=== PATIENT | female | born 1995 | race Caucasian/White ===

== ENCOUNTER 2019-11-05 08:45 | Outpatient (CLI) | payer MEDICAID, SELFPAY ==
--- NOTE | 2019-11-05 | US_ITS ---
WS: [id number] OBSTETRICAL ULTRASOUND COMPLETE HISTORY: MULTIGRAVIDA IN SECOND TRIMESTER COMPARISON: None available. Single intrauterine gestation in Cephalic presentation. Cervix is Closed and normal length. Cervical length is 4.2 cm. Normal amount of amniotic fluid surrounds the fetus. Placenta: Posterior with no previa. Placenta ends 2.0 cm above the internal cervical os. Placenta gr nicholas 1 Heart: 151 BPM. Four chambers are identified. Anatomy: Intracranial structures and spine are normal. kidneys, stomach and urinary bladd er are unremarkable. Abdominal wall, three-vessel cord and cord insertion site are normal. 4 extremities are present. profile: Unremarkable. Gender: Female. measurements: BPD = 4.3 cm = 19w0d HC = 16.1 cm = 19w0d AC = 13.5 cm = 19w0d FL = 3.0 cm = 19w1d EFW: 272 g., Measurements are internally concordant. AGA by ultrasound: 19 weeks 0 days GILLES by ultrasound: 03/31/2020 US/US OB >= 14 weeks fetus [id number] IMPRESSION: 1. Single intrauterine gestation of 19 weeks 0 day with an EDC of 03/31/2020. 2. Unremarkable screening survey of anatomy.
== END 2019-11-05 08:46 | disposition home or self-care (01) ==
LOC: RADOUTREAD 11:27
PROVIDERS: Family Provider Family Medicine; PCP Family Medicine; Visit Provider Family Medicine
DX: Z34.82 Encounter for supervision of other normal pregnancy, second trimester (principal)

== ENCOUNTER 2020-03-09 19:03 | Outpatient (CLI) | payer MEDICAID, SELFPAY ==
[2020-03-09 19:11] VITALS: BP 140/80; PULSE 94
[2020-03-09 19:44] VITALS: TEMP 37; BMI 25.9
[2020-03-09 20:22] LABS: Nitrazine Paper, PH Negative
[2020-03-09 21:36] VITALS: TEMP 37
== END 2020-03-09 20:10 | disposition home or self-care (01) ==
LOC: OPOB 19:05 → OBGYN 20:03
PROVIDERS: PCP Family Medicine; Visit Provider Family Medicine
DX: O26.899 Other specified pregnancy related conditions, unspecified trimester (principal); Z3A.00 Weeks of gestation of pregnancy not specified; N89.8 Other specified noninflammatory disorders of vagina
CPT/HCPCS: 59025; 83986; 99211

== ENCOUNTER 2020-03-28 00:07 | Outpatient (CLI) | payer MEDICAID, SELFPAY ==
[2020-03-28] VITALS (7 sets, daily range): BP systolic 0–121; BP diastolic 0–79; PULSE 88–107; TEMP 36.8; BMI 26.7
== END 2020-03-28 03:22 | disposition home or self-care (01) ==
LOC: OPOB 00:08 → OBGYN 01:29
PROVIDERS: PCP Family Medicine; Visit Provider Family Medicine
DX: O26.899 Other specified pregnancy related conditions, unspecified trimester (principal); Z3A.00 Weeks of gestation of pregnancy not specified; R10.9 Unspecified abdominal pain
CPT/HCPCS: 59025; 83986; 99211

== ENCOUNTER 2020-04-02 19:45 | Inpatient (IN) | payer MEDICAID, SELFPAY ==
[2020-04-02] VITALS (19 sets, daily range): BP systolic 0–122; BP diastolic 0–78; PULSE 91–109; TEMP 36.8; O2SAT 96–98; BMI 27.1
[2020-04-02 21:02] LABS: Basophils % 0.2 %; Eosinophils # 0.1 10^3/uL (0.0-0.8); Hematocrit 33.4 % (37.0-47.0); Lymphocytes # 2.1 10^3/uL (0.8-4.8); Lymphocytes % 21.4 %; Mean Corpuscular HGB Conc 32.9 g/dL (30.0-36.0); Mean Corpuscular Hemoglobin 27.6 pg (28.0-34.0); Mean Corpuscular Volume 83.9 fL (81-99); Mean Platelet Volume 9.9 fL (7.4-10.4); Monocytes # 0.6 10^3/uL (0.2-0.9); Monocytes % 6.5 %; Neutrophils # 6.8 10^3/uL (1.8-7.7); Neutrophils % 70.3 %; Nucleated Red Blood Cells % 0 %; Platelet Count 350 10^3/cmm (130-400); Red Blood Count 3.98 10^6/uL (4.1-5.3); Red Cell Distribution Width 13.8 % (12.1-15.1); White Blood Count 9.7 10^3/uL (4.0-10.0)
[2020-04-02] MEDS: miSOPROStol 100 mcg tablet 25 MCG VAGINAL (21:05)
[2020-04-03] VITALS (14 sets, daily range): BP systolic 0–142; BP diastolic 0–82; PULSE 80–110; RESP 15–18; TEMP 36.4–36.8; O2SAT 96–98
[2020-04-03] MEDS: dextrose 5%-lactated ringers 1,000 ML 125 ML IV (00:52)
--- NOTE | 2020-04-03 01:27 | PM.DELIVERY ---
Delivery Note: Date of delivery: April 03, 2020 Pre-delivery diagnoses: 25-year-old 2 para 1-0-0-1 with an estimated gestational age of 40 weeks presenting for induction Post-delivery diagnoses: Status post spontaneous precipitous delivery Procedure: Spontaneous vaginal delivery Op report anesthesia: None Delivering Physician: Ishan Carlin Estimated blood loss (mL): 200 Pre-Delivery Course: The patient presented to the hospital at 1999 for induction due to being postdates. The patient had an unremarkable . Her labs were within normal limits. Her GBS status was negative. Her glucose screen was negative. Cytotec 25 mcg x 1 was placed. She then progressed quickly to complete. Spontaneous rupture of membranes occurred. I was contacted when the patient was 7 cm dilated, and I notified the nurses that I would be on my way. Delivery: The patient was delivered precipitously by the nurse about 30 seconds prior to my arrival to the room. The patient was delivered from a vertex position on the bed. The baby's cord was then clamped and cut shortly after I arrived in the room. The placenta was then delivered without difficulty. The baby had Apgars of 9 and 9. Her weight was 6 pounds 13 ounces. There was no nuchal cord. There was no meconium. The mouth and nose were suctioned shortly after delivery. The perineum and vaginal vault were examined and the patient was noted to have a first-degree anterior tear that did not require repair. Both the mom and baby were in stable condition. 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
[2020-04-03] MEDS: acetaminophen 325 mg Tablet 650 MG PO ×3 (04:19→20:01)
[2020-04-03] MEDS: prenatal vitamin Capsule 1 CAP PO (09:18)
[2020-04-03] MEDS: docusate sodium 100 mg Capsule PO ×2 (09:18→21:29)
[2020-04-03 14:38] LABS: Hematocrit 31.3 % (37.0-47.0); Hemoglobin 10.1 g/dL (11.5-15.3); Mean Corpuscular HGB Conc 32.3 g/dL (30.0-36.0); Mean Corpuscular Hemoglobin 27.1 pg (28.0-34.0); Mean Corpuscular Volume 83.9 fL (81-99); Mean Platelet Volume 10.2 fL (7.4-10.4); Platelet Count 332 10^3/cmm (130-400); Red Blood Count 3.73 10^6/uL (4.1-5.3); Red Cell Distribution Width 13.8 % (12.1-15.1); White Blood Count 11.1 10^3/uL (4.0-10.0)
[2020-04-04] VITALS (16 sets, daily range): BP systolic 100–124; BP diastolic 65–77; PULSE 66–109; RESP 10–24; TEMP 36.1–36.7; O2SAT 94–100
[2020-04-04] MEDS: lactated ringers 1,000 ML 999 ML IV (06:10)
--- NOTE | 2020-04-04 06:25 | P.HP_ITS ---
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 The patient had an unre markable spontaneous vaginal delivery yesterday. Her course has been unremarkable. Her bleeding has been mild to moderate. Earlier in her , the patient had made it clear that she desired sterilization . We discussed the risks and alternatives. We discussed the poss ibility of long-term control such as an IUD that are completely reversible. We also discussed the risks of bleeding, infection, and damage to intra-abdominal organs. We discussed the increased risk of an ectopic as well as a 1 and 200 chance of becoming again despite a successful tubal ligation. We once again discussed these risks and alternatives . The patient acknowledged all these risks and alternatives and made it clear that she wishes to proceed. Present Details : 2 Para: 1 Labs Rubella: Immune RPR: Negative GBS: Negative Review of Systems General: Reports: 10 or more systems reviewed and unremarkable except in HPI and below Const: Reports: fatigue; Denies: fever(s) Eyes: Denies: change in vision Card: Denies: chest pain Musc: Reports: back pain Talat/Lymph: Denies: easy bruising Medications/Allergies Home Medications Medication Instructions Recorded Confirmed Last Taken Type No Known Home Medications 03/09/20 03/09/20 Unknown History Allergies Allergy/AdvReac Type Severity Reaction Status Date / Time No Known Allergies Allergy Verified 03/28/20 00:53 Vitals/I&O/Wt Last Vital Signs Temp 97.6 F 04/03/20 21:30 Pulse 99 04/03/20 21:30 Resp 16 04/03/20 21:30 BP 107/71 04/03/20 21:30 Pulse Ox 97 04/03/20 21:30 04/03/20 04/03/20 04/04/20 14:59 22:59 06:59 Intake Total 400 / 400 Balance 400 / 400 Weight last 48 hrs Weight 173 lb Physical Exam Const: COMMON NORMALS: patient oriented x3 and alert HENMT: COMMON NORMALS: moist oral mucous membranes HEAD & SCALP: normal to inspection Chest: COMMONS NORMALS: normal inspection of the chest Resp: COMMON NORMALS: clear to auscultation bilaterally AUSCULTATION: clear to auscultation bilaterally Cardio: COMMON NORMALS: regular rate and regular rhythm RATE: regular rate RHYTHM: regular rhythm GI: INSPECTION: Yes normal to inspection PERCUSSION: Other (The fundus is a centimeter below the umbilicus) Extremity: COMMON NORMALS: normal to inspection GENERAL: Yes edema (Trace) Neuro: COMMON NORMALS: patient oriented x3, moves all extremities and no sensory deficits noted SENSORIUM/ORIENTATION: Yes alert Psych: COMMON NORMALS: mental status grossly normal Skin: COMMON NORMALS: no rashes or lesions noted GENERAL SKIN EXAM: no rashes or lesions noted Data : 04/03/20 14:29 A&P Assessment and plan (1) Spontaneous vaginal delivery: Status: Acute (2) 40 weeks gestation of : Status: Acute (3) Encounter for sterilization: We will proceed with a tubal ligation this morning. Anticipate the patient will be discharged home later on this morning if all goes well. Status: Acute Attestations Medical Necessity Statement*: Routine spontaneous vaginal delivery, tubal ligation and postoperative care. She should be going home later on this morning. Coding Level of Care Code Acute Customer Account Administrator for Chg Fwd Diagnoses Spontaneous vaginal delivery O80 40 weeks gestation of Z3A.40 Encounter for sterilization Z30.2
[2020-04-04] MEDS: sodium chloride 0.9% 1,000 ML 30 ML IV (07:00)
--- NOTE | 2020-04-04 07:36 | P.OP_ITS ---
Operative Report Date of procedure: April 04, 2020 Pre-op Diagnosis: 25-year-old female desiring sterilization Post-op diagnosis: same Procedure Done: minilaparotomy bilateral tubal ligation using a modified [place] technique Specimens removed/disposition: Bilateral fallopian tube segments with the right segment being tagged Surgeon: Ishan Carlin Anesthesia: General Estimated blood loss (mL): 5 Complications: None Condition: stable Disposition: floor (OB) Brief History: Refer to history and physical Procedure: The patient was brought back to the operating room where anesthesia was found to be adequate. 10 mL of 0.5% bupivacaine was then used to pre- anesthetize the area just inferior to the umbilicus. A #15 blade was then used to make a 3 cm transverse incision just inferior to the umbilicus. I then dissected down to the underlying subcutaneous tissue until arriving at the fascia. The fascia was then nicked with the scalpel. The fascial incision was extended manually. I identified the fundus of the uterus and followed it to the left fallopian tube. The fallopian tube was then followed to the fimbria. The tube was then ligated, cut, and cauterized in a modified [place] fashion using 0 chromic. The right fallopian tube was then identified and followed through to the fimbria. It was ligated, cut, and cauterized in similar fashion. The right fallopian tube was tagged. Both fallopian tubes had excellent hemostasis. The fascia was reapproximated using 0 Vicryl in running stitch. The subcutaneous tissue was carefully examined and no further bleeding was noted. The skin was then reapproximated using 4-0 Vicryl in a running subcuticular stitch. A sterile dressing was placed. All counts were correct x2. The patient was moved to the recovery room in stable condition.
--- NOTE | 2020-04-04 07:37 | P.DS_ITS ---
Discharge Providers RETURNED ITEM CLERK Date of Admission: 04/02/20 19:45 Date of Discharge: 04/04/20 Attending Provider at Admission: Ishan Carlin MD Attending Provider at Discharge: Ishan Carlin MD Primary Care Provider: Ishan Carlin MD Diagnoses at Discharge Discharge Diagnosis (1) Spontaneous vaginal delivery: Status: Acute (2) 40 weeks gestation of : Status: Acute (3) Encounter for sterilization: Status: Acute Reason for Visit Reason for Visit: INDUCTION Hospital Course Hospital Course: The patient presented to the hospital for induction. Cytotec 25 mcg x 1 per vagina was used. She then progressed to complete and had an unremarkable vaginal delivery. Her course was also unremarkable. She had minimal bleeding. Her pain was well controlled. A tubal was performed the following morning. It was also unremarkable. Her postoperative course was also unremarkable. Information Peripartum Data: Delivery Method: Vaginal Physical Exam Narrative: EXAM NARRATIVE: Prior to surgery the patient is alert. She appears comfortable. Her heart has a regular rate and rhythm with no murmurs appreciated. Lungs are clear to auscultation bilaterally. Her fundus is firm and below the umbilicus. Exam after surgery demonstrates the patient arousing. Heart and lungs are still clear to auscultation bilaterally. Her incision dressing is clean dry and intact Discharge Data Data Completed and Pending: Labs from last 24 hours 04/03/20 14:29 WBC 11.1 H RBC 3.73 L Hgb 10.1 L Hct 31.3 L MCV 83.9 MCH 27.1 L MCHC 32.3 RDW 13.8 Plt Count 332 MPV 10.2 Vitals: Last Vital Signs Temp 96.9 F L 04/04/20 06:31 Pulse 80 04/04/20 06:31 Resp 20 H 04/04/20 06:31 BP 124/76 04/04/20 06:31 Pulse Ox 99 04/04/20 06:31 Discharge Plan Discharge Patient Disposition: Home, Self-Care Condition: Stable Prescriptions: New ibuprofen 800 mg Tablet 800 mg PO TID Qty: 45 RF: 0 hydrocodone-acetaminophen 5-325 mg Tablet 1 tab PO Q6H PRN (Reason: Moderate To Severe Pain) Qty: 20 RF: 0 -U 106.5-1 mg Capsule 1 cap PO DAILY Qty: 30 RF: 0 Discharge Orders: Discharge Order (Routine); Ordered 04/04/20 Ordered By: Ishan Carlin Referrals: Ishan Carlin MD [Primary Care Provider] - 7-10 days Discharge Diet: Usual diet Discharge Activity: Limit activity as instructed Patient Instructions: OB Discharge Report, OB Food/Drug Interaction Guide, OB P ostpartum Home Care, OB Proud Parent Packet, OB Vaginal Deliveries Discharge Attestations RETURNED ITEM CLERK Time Spent in Discharge Care*: less than 30 min Specific Discharge Activities: Specific discharge activities: educating patient Coding Level of Care Code Acute Investigative Analyst for Chg Fwd Diagnoses Spontaneous vaginal delivery O80 40 weeks gestation of Z3A.40 Encounter for sterilization Z30.2
[2020-04-04] MEDS: fentaNYL 50 mcg/mL INJ 2mL IVP (07:56)
--- NOTE | 2020-04-04 08:32 | SUR.PHASEI ---
0819 PATIENT TO OB AT THIS TIME. RATES PAIN 02/03. DENIES NAUSEA, TOLERATING ICE CHIPS. PATIENT AMBULATORY TO BED WHEN ARRIVING TO OB WITH STEADY GAIT.
[2020-04-04] MEDS: HYDROcodone-acetaminophen 5-325 mg Tablet PO (12:17)
== END 2020-04-04 13:33 | disposition home or self-care (01) | DRG 798 ==
PROVIDERS: Admitting Provider Family Medicine; PCP Family Medicine; Visit Provider Family Medicine
PROC: (CPT 58605; principal; 2020-04-04 07:00)
DX: O48.0 Post-term pregnancy (principal); Z37.0 Single live birth; Z3A.40 40 weeks gestation of pregnancy; Z30.2 Encounter for sterilization
CPT/HCPCS: 12345; 36415; 59025; 59409; 83986; 85025; 85027; 88302; 96374; J1100; J2001; J2405; J2704; J2710; J3010; J3490; J7030

== ENCOUNTER 2023-03-07 12:26 | Outpatient (CLI) | payer MEDICAID, SELFPAY ==
--- NOTE | 2023-03-07 12:52 | US_ITS ---
WS: [id number] Right breast ultrasound, 03/07/2023 Clinical Data: 2 CM MASS @ 6 O'CLOCK R BREAST Comparison: None. Findings: There is a lesion in the subcutaneous tissue of the right breast 1 cm from the nipple at the 6:00 pos ition which measures 0.98 x 2.45 x 3.40 cm. The lesion is surrounded with a smooth border and the ech otexture is mixed. No other abnormalities are seen in this area. . US/US breast RT limited* [id number] Impression: 1. Nonspecific solid nodule at the 6:00 position 1 cm from the nipple in the ri ght breast. 2. Recommend biopsy if this lesion is enlarging. BIRADS: 4-Suspicious Finding-Biopsy Should Be Considered FOLLOW UP: See Report
== END 2023-03-07 12:27 | disposition home or self-care (01) ==
LOC: RAD 12:31
PROVIDERS: PCP Advanced Practice Midwife; Visit Provider Advanced Practice Midwife
DX: N63.15 Unspecified lump in the right breast, overlapping quadrants (principal)
CPT/HCPCS: 76642

== ENCOUNTER 2025-02-09 10:50 | Emergency (ER) | payer BC, SELFPAY ==
[2025-02-09 10:53] VITALS: BP 102/81; PULSE 80; RESP 16; O2SAT 100
--- NOTE | 2025-02-09 10:59 | W.ED.NAVMDI ---
HPI - Nausea/Vomiting/Diarrhea General: Chief complaint: Nausea/Vomiting/Diarrhea Stated complaint: Allergic Reaction, N/V/D Time Seen by Provider: 02/09/25 10:52 History of Present Illness: This is a healthy 30-year-old female who presents emergency room by ambulance with nausea vomiting diarrhea. She took her first dose of amoxicillin this morning for an ear infection. She was driving in the car and suddenly developed nausea and vomiting. Ultimately they ended up having to call an ambulance. She has received Zofran and fluids during transport. Related Data Previous Rx's ?Medication ?Instructions ?Recorded amoxicillin 875 mg-potassium 1 tab PO BID 7 days #14 tabs 02/08/25 clavulanate 125 mg tablet fluticasone propionate 50 1 spray intranasal BID #16 grams 02/08/25 mcg/actuation nasal spray,suspension (Allergy Relief (fluticasone)) cefdinir 300 mg capsule 300 mg PO BID 7 days #14 caps 02/09/25 ondansetron 8 mg disintegrating 8 mg PO Q6H #14 tabs 02/09/25 tablet promethazine 25 mg rectal 25 mg LA Q6H PRN nausea and 02/09/25 suppository vomiting #12 ea Allergies Allergy/AdvReac Type Severity Reaction Status Date / Time amoxicillin Allergy ADR-Nausea Verified 02/09/25 10:57 Review of Systems Narrative: Constitutional symptoms: Negative except as documented in HPI. Skin symptoms: Negative except as documented in HPI. Eye symptoms: Negative except as documented in HPI. ENMT symptoms: Negative except as documented in HPI. Respiratory symptoms: Negative except as documented in HPI. Cardiovascular symptoms: Negative except as documented in HPI. Gastrointestinal symptoms: Negative except as documented in HPI. Genitourinary symptoms: Negative except as documented in HPI. Musculoskeletal symptoms: Negative except as documented in HPI. Neurologic symptoms: Negative except as documented in HPI. Psychiatric symptoms: Negative except as documented in HPI. Endocrine symptoms: Negative except as documented in HPI. PFSH ED PFSH: Social History Smoking and tobacco/nicotine status: former use of tobacco/nicotine Physical Exam Narrative: EXAM NARRATIVE: General: Alert, no acute distress. Skin: Warm, dry. Head: Normocephalic, atraumatic. Neck: Supple, trachea midline. Eye: Extraocular movements are intact. Ears, nose, mouth and throat: Tacky oral mucosa Cardiovascular: Regular, Normal peripheral perfusion. Respiratory: Lungs are clear to auscultation, respirations are non-labored, breath sounds are equal, Symmetrical chest wall expansion. Gastrointestinal: Soft, epigastric tenderness, Non distended Musculoskeletal: Normal ROM, no deformity. Neurological: Alert and oriented, No focal neurological deficit observed. Psychiatric: Cooperative, appropriate mood & affect. Course Vital Signs: Vital signs: Vital Signs Pulse Rate 88 02/09/25 14:17 Respiratory Rate 18 02/09/25 13:12 Blood Pressure 96/64 02/09/25 14:17 Pulse Oximetry 97 02/09/25 14:17 Oxygen Delivery Me thod Room Air 02/09/25 13:12 MDM - Nausea/Vomiting/Diarrhea Medical Decision Making Medical decision making: Differential diagnosis for this patient with nausea and vomiting including but not limited to and based on the above HPI, review of systems and physical exam: Urinary tract infection. Appendicitis. Cholecystitis. Colitis. small bowel obstruction. crohn's flare. pancreatitis. gastritis. peptic ulcer. cyclic vomiting. Viral illness. Influenza. COVID. Orders placed to evaluate differential diagnosis based on the above differential, HPI and physical exam Lab Review: Laboratory results were reviewed and interpreted by myself the emergency room physician. No leukocytosis. No anemia. No renal failure. Urine does have a significant urinary tract infection with 21-50 whites although there are no bacteria. She is treating for an otitis so changed her from penicillin to Rocephin here and Omnicef at home. CT of the abdomen pelvis with contrast: Fluid throughout the colon might indicate an ileus. However she has had extensive diarrhea think she just has a gastroenteritis. No bowel obstruction. No other acute findings. This was reviewed and interpreted by myself the emergency room physician. I also reviewed the radiology report. I reviewed the patient's medical record. Reexamination: Patient says she feels quite a bit better. No pain. Tolerating p.o. She was resting well. No altered mental status. No increased work of breathing. We discussed findings. I talked with her her mother and her . Assessment and plan: Gastroenteritis Urinary tract infection Otitis media ? Normal saline bolus, IV Zofran. Still with nausea and vomiting. Received Compazine and Benadryl as well. - Discharged home - Discussed plan with patient. Answered any questions. - Evaluation and treatment of this problem were appropriate in the emergency setting. Lab Data 02/09/25 10:50 02/09/25 10:50 Radiology Impressions Abdomen/Pelvis CT 02/09/25 11:37 IMPRESSION: 1. Large amount of fluid throughout the entire colon may be liquid feces or diffuse ileus. Small amount of fluid increasing in the distal small bowel. No transition point. 2. No free air or free fluid. Laboratory Results WBC 5.14 10^3/uL (3.29-11.43) 02/09/25 10:50 RBC 5.46 10^6/uL (3.85-5.65) 02/09/25 10:50 Hgb 15.70 g/dL (11.27-16.99) 02/09/25 10:50 Hct 46.1 % (36-47) 02/09/25 10:50 MCV 84.4 fl (85-98) L 02/09/25 10:50 MCH 28.8 pg (27-33) 02/09/25 10:50 MCHC 34.1 g/dL (30-55) 02/09/25 10:50 RDW 11.9 % (12.1-15.1) L 02/09/25 10:50 Plt Count 542 10^3/cmm (157-399) H 02/09/25 10:50 MPV 9.8 fL (7.4-10.4) 02/09/25 10:50 Neut % (Auto) 63.4 % 02/09/25 10:50 Lymph % (Auto) 32.5 % 02/09/25 10:50 [facility] % (Auto) 2.7 % 02/09/25 10:50 Eos % (Auto) 0.2 % 02/09/25 10:50 Baso % (Auto) 0.8 % 02/09/25 10:50 Neut # (Auto) 3.26 10^3/uL (1.8-7.7) 02/09/25 10:50 Lymph # (Auto) 1.7 10^3/uL (0.8-4.8) 02/09/25 10:50 [facility] # (Auto) 0.1 10^3/uL (0.2-0.9) L 02/09/25 10:50 Eos # (Auto) 0.0 10^3/uL (0.0-0.8) 02/09/25 10:50 Baso # (Auto) 0.0 10^3/uL (0.0-0.1) 02/09/25 10:50 Nucleated RBC % (auto) 0 % 02/09/25 10:50 Nucleated RBCs # 0.0 /100WBC 02/09/25 10:50 Sodium 141 mmol/L (136-145) 02/09/25 10:50 Potassium 4.1 mmol/L (3.5-5.1) 02/09/25 10:50 Chloride 100 mmol/L (98-107) 02/09/25 10:50 Carbon Dioxide 22 mmol/L (22-29) 02/09/25 10:50 Anion Gap 23.1 (5-19) H 02/09/25 10:50 BUN 12 mg/dL (6-20) 02/09/25 10:50 Creatinine 0.7 mg/dL (0.5-0.9) 02/09/25 10:50 GFR Calculation 98.3 mL/min (90-130) 02/09/25 10:50 Glucose 124 mg/dL (65-115) H 02/09/25 10:50 Calculated Osmolality 293 mOsm/kg (285-295) 02/09/25 10:50 Lactic Acid 6.0 mmol/L (0.5-2.2) H* 02/09/25 10:50 Lactic Acid (Sepsis) 1.4 mmol/L (0.5-2.2) 02/09/25 13:10 Calcium 10.8 mg/dL (8.5-10.5) H 02/09/25 10:50 Total Bilirubin 0.6 mg/dL (0.15-1.2) 02/09/25 10:50 AST 18 U/L (0-32) 02/09/25 10:50 ALT 16 U/L (0-33) 02/09/25 10:50 Alkaline Phosphatase 71 U/L (35-105) 02/09/25 10:50 C-Reactive Protein 3.0 mg/L (0.0-4.9) 02/09/25 10:50 Total Protein 9.0 g/dL (6.6-8.7) H 02/09/25 10:50 Albumin 5.2 g/dL (3.5-5.2) 02/09/25 10:50 Globulin 3.8 g/dL (1.3-4.6) 02/09/25 10:50 Lipase 21 U/L (13-60) 02/09/25 10:50 HCG, Qual Negative (Negative) 02/09/25 11:26 Urine Color Yellow (Yellow) 02/09/25 11:26 Urine Appearance Cloudy (CLEAR) A 02/09/25 11:26 Urine pH 6.0 (5-7) 02/09/25 11:26 Ur Specific [place] 1.031 (1.005-1.030) H 02/09/25 11:26 Urine Protein 1+ (Negative) A 02/09/25 11:26 Urine Glucose (UA) Negative (Normal) 02/09/25 11: Urine Ketones 1+ (Negative) H 02/09/25 11:26 Urine Blood Non-haemolysed trace (Negative) 02/09/25 11:26 Urine Nitrate Negative (Negative) 02/09/25 11:26 Urine Bilirubin Negative (Negative) 02/09/25 11:26 Urine Urobilinogen 1.0 mg/dL (Negative) 02/09/25 11:26 Ur Leukocyte Esterase Negative (Negative) 02/09/25 11:26 Urine RBC 3-5 /hpf (0-2) 02/09/25 11:26 Urine WBC 21-50 /hpf (0-5) H 02/09/25 11:26 Ur Squamous Epith Cells 0-5 /hpf (0-5) 02/09/25 11:26 Amorphous Sediment Not Reportable 02/09/25 11:26 Urine Bacteria None seen /hpf (NONE) 02/09/25 11:26 Hyaline Casts 45.09 /lpf 02/09/25 11:26 Fine Granular Casts 0-4 /lpf H 02/09/25 11:26 Urine Opiates Screen Negative ng/mL (Negative) 02/09/25 11:26 Ur Barbiturates Screen Negative ng/mL (Negative) 02/09/25 11:26 Ur Phencyclidine Scrn Negative ng/mL (Negative) 02/09/25 11:26 Ur Amphetamines Screen Negative ng/mL (Negative) 02/09/25 11:26 U Benzodiazepines Scrn Negative ng/mL (Negative) 02/09/25 11:26 Urine Cocaine Screen Negative ng/mL (Negative) 02/09/25 11:26 U Marijuana (THC) Screen Positive ng/mL (Negative) H 02/09/25 11:26 All radiology interpretation(s) finalized by discharge Discharge Plan Discharge Patient Disposition: Home Clinical Impression: Gastroenteritis, Urinary tract infection, Otitis media Condition: Stable Prescriptions: New promethazine 25 mg suppository 25 mg LA Q6H PRN (Reason: nausea and vomiting) Qty: 12 0RF ondansetron 8 mg tablet,disintegrating 8 mg PO Q6H Qty: 14 0RF Rx Instructions: Take 1/2-1 tab every 6 hours as needed for nausea and vomiting cefdinir 300 mg capsule 300 mg PO BID 7 Days Qty: 14 0RF No Action amoxicillin-pot clavulanate 875-125 mg tablet 1 tab PO BID 7 Days Qty: 14 0RF fluticasone propionate [Allergy Relief (fluticasone)] 50 mcg/actuation spray,suspension 1 spray intranasal BID Qty: 16 0RF Rx Instructions: administer into each nostril Discharge Orders: Discharge ED (Routine); Ordered 02/09/25 Ordered By: Kristie Valencia Referrals: Ishan Carlin MD [Primary Care Provider] - Discharge Diet: Advance as tolerated Discharge Activity: Increase activity as tolerated Patient Instructions: Urinary Tract Infection in Women (ED), Gastroenteritis (ED), Opioid Safety, Pain Management Activity Restrictions/Additional Instructions: Thank you for choosing [facility] for your healthcare needs today. Please realize this is an emergency room and that we are providing you with a medical screening exam and this may not be complete and all inclusive of all the testing and or work up that you may need to determine your ailment or severity of your illness. You have been screened and evaluated and felt safe for discharge. Health conditions do change or evolve sometimes and as such it is important that you follow up with your Primary Doctor to be re checked, 3-5 days is a general good time frame for follow up. You are always welcome to return to the ED for re assessment if your symptoms are worsening or you have new concerns Print Language: Luxembourgish Coding Level of Care Code ED Electronics Engineering Technologist for Alma Coreas
[2025-02-09 11:02] VITALS: BP 99/66; PULSE 73; RESP 16; O2SAT 100
[2025-02-09 11:06] LABS: Basophils % 0.8 %; Eosinophils % 0.2 %; Hematocrit 46.1 % (36-47); Lymphocytes # 1.7 10^3/uL (0.8-4.8); Lymphocytes % 32.5 %; Mean Corpuscular HGB Conc 34.1 g/dL (30-55); Mean Corpuscular Hemoglobin 28.8 pg (27-33); Mean Corpuscular Volume 84.4 fl (85-98); Mean Platelet Volume 9.8 fL (7.4-10.4); Monocytes # 0.1 10^3/uL (0.2-0.9); Monocytes % 2.7 %; Neutrophils # 3.26 10^3/uL (1.8-7.7); Neutrophils % 63.4 %; Nucleated Red Blood Cells % 0 %; Platelet Count 542 10^3/cmm (157-399); Red Blood Count 5.46 10^6/uL (3.85-5.65); Red Cell Distribution Width 11.9 % (12.1-15.1); White Blood Count 5.14 10^3/uL (3.29-11.43)
--- NOTE | 2025-02-09 11:07 | PC.NURSE ---
informed pt of need for urine sample, denies need to urinate at this time; requesting pain meds; ED provider notified
[2025-02-09 11:25] LABS: Alanine Aminotransferase 16 U/L (0-33); Albumin Level 5.2 g/dL (3.5-5.2); Alkaline Phosphatase 71 U/L (35-105); Anion Gap 23.1 (5-19); Aspartate Amino Transferase 18 U/L (0-32); Blood Urea Nitrogen 12 mg/dL (6-20); Calcium 10.8 mg/dL (8.5-10.5); Carbon Dioxide 22 mmol/L (22-29); Chloride 100 mmol/L (98-107); Creatinine Clr Calc Pharmacy 112.3239; Globulin 3.8 g/dL (1.3-4.6); Glomerular Filtration Rate 98.3 mL/min (90-130); Glucose 124 mg/dL (65-115); Lipase 21 U/L (13-60); Osmolality Calculated 293 mOsm/kg (285-295); Potassium 4.1 mmol/L (3.5-5.1); Sodium 141 mmol/L (136-145); Total Bilirubin 0.6 mg/dL (0.15-1.2)
[2025-02-09] MEDS: ondansetron 2 mg/ML SDV 2 mL 8 MG IVP (11:27)
[2025-02-09] MEDS: HYDROmorphone 0.5 MG/0.5 ML INJ 1 MG IVP (11:27)
[2025-02-09] MEDS: famotidine 20 mg/2 mL INJ 40 MG IVP (11:27)
[2025-02-09 11:33] LABS: Bilirubin Urine Negative (Negative); Blood Urine Non-haemolysed trace (Negative); Glucose Urine UA Negative (Normal); Ketones Urine 1+ (Negative); Leukocyte Esterase Urine Negative (Negative); Nitrate Urine Negative (Negative); Protein Urine 1+ (Negative); Urine Appearance Cloudy (CLEAR); Urine Color Yellow (Yellow)
[2025-02-09 11:34] LABS: HCG Qualitative Urine. Negative (Negative)
[2025-02-09 11:35] LABS: Bacteria Urine None Seen /hpf; Hyaline Casts Urine 45.09 /lpf; Squamous Epithelial Cell Urine 0-5 /hpf (0-5); WBC Urine 21-50 /hpf (0-5)
--- NOTE | 2025-02-09 11:37 | CT_ITS ---
WS: [id number] CT ABDOMEN AND PELVIS WITH CONTRAST HISTORY: Abdominal pain TECHNIQUE: Imaging performed of the abdomen and pelvis with IV contrast. Single phase imaging of the abdomen. Coronal and sagittal reformats are submitted. All CT scans at [facility] use at least one of these dose optimization techniques: automated exposure control; mA and/or kV adjustment per patient size (includes targeted exams where dose is matched to clinical indication); or iterative reconstruction. IV CONTRAST: Omnipaque 350; 100 mL IV. Oral contrast: No DLP: 268.02 mGy.cm COMPARISON: None available. Lower thorax: 2 mm nodule medial LEFT lung base. Heart is normal size. No hiatal hernia. Liver/biliary system: Normal size with no intrahepatic dilatation. Gallbladder: Normal. No gallstones or wall thickening. No pericholecystic fluid. Pancreas: Normal size pancreas and pancreatic duct. No adjacent inflammation. Spleen: Normal size spleen. No mass or infarct. Adrenal glands: Normal. Right kidney: Normal. Left kidney: Normal. Aorta: Normal. Lymphadenopathy: None. Free fluid: None. GI tract: Stomach is nondistended. No small bowel obstruction. Increasing fluid in the distal small bowel. There is a large amount of fluid throughout the colon. There is no transition point and fluid extends to the rectum. Appendix is not definitely identified but there is no evidence for appendicitis. Abdominal wall: Unremarkable abdominal wall. No hernia. Pelvis: No free fluid or adenopathy within the pelvis. Antegrade uterus. Small bilateral ovarian follicles. Bones: Unilateral LEFT L5 pars defect. CT/CT abdomen pelvis w con* [id number] IMPRESSION: 1. Large amount of fluid throughout the entire colon may be liquid feces or di ffuse ileus. Small amount of fluid increasing in the distal small bowel. No tra nsition point. 2. No free air or free fluid.
[2025-02-09 11:39] LABS: Specific Gravity, Urine 1.031 (1.005-1.030)
[2025-02-09 11:46] LABS: Add Urine Culture? No; Fine Granular Casts Urine 0-4 /lpf
[2025-02-09] MEDS: cefepime 2,000 mg SDV 2000 MG IVP (12:23)
[2025-02-09] MEDS: sodium chloride 0.9% 1,000 ML 999 ML IV (12:23)
[2025-02-09 12:48] LABS: Reflex Lactate Order REFLEX LACTIC ORDERD
[2025-02-09] MEDS: prochlorperazine 10 mg/2 mL Inj IVP (13:08)
[2025-02-09] MEDS: diphenhydrAMINE 50 mg/mL SDV 1mL IVP (13:08)
[2025-02-09 13:12] VITALS: BP 115/92; PULSE 93; RESP 18; O2SAT 98
--- NOTE | 2025-02-09 13:13 | PC.NURSE ---
pt provided wet mouth swab, informed to stay NPO
[2025-02-09] MEDS: iohexol 350 mg/mL 500 mL Btl (per mL) IV (13:21)
[2025-02-09 13:27] LABS: Amphetamines Screen Urine Negative (Negative); Barbiturates Screen Urine Negative (Negative); Benzodiazepines Screen Urine Negative (Negative); Cocaine Screen Urine Negative (Negative); Opiate Screen Urine Negative (Negative); PCP Screen Urine Negative (Negative); THC Screen Urine Positive (Negative)
[2025-02-09 13:32] LABS: Lactic Acid level (Lactate) 1.4 mmol/L (0.5-2.2)
[2025-02-09 14:17] VITALS: BP 96/64; PULSE 88; O2SAT 97
[2025-02-09 14:39] VITALS: BP 102/66; PULSE 86; RESP 22; O2SAT 93
== END 2025-02-09 14:50 | disposition home or self-care (01) ==
PROVIDERS: Emergency Provider Emergency Medicine; PCP Family Medicine
DX: K52.9 Noninfective gastroenteritis and colitis, unspecified (principal); N39.0 Urinary tract infection, site not specified; H66.90 Otitis media, unspecified, unspecified ear; Z87.891 Personal history of nicotine dependence
CPT/HCPCS: 36415; 74177; 80053; 80306; 81001; 81025; 83605; 83690; 85025; 86140; 96374; 96375; 99285; 99291; J0692; J0780; J1171; J1200; J2405; J3490; J7030